=== PATIENT | male | born 1985 | race Caucasian/White ===

== ENCOUNTER 2020-08-27 10:12 | Emergency (ER) | payer OTHER ==
[2020-08-27 10:48] LABS: HEMOGLOBIN 16.8 gm/dl (14.0-17.5); RED BLOOD COUNT 5.35 M/UL (4.20-5.50); WHITE BLOOD COUNT 8.5 K/UL (4.5-11.0)
[2020-08-27 11:08] LABS: BUN/CREATININE RATIO 20 (0-10)
[2020-08-27] MEDS ORDERED: KEPPRA500 MG PO (12:28)
== END 2020-08-27 13:17 | disposition home or self-care (01) ==
LOC: ER1 10:12
PROVIDERS: Physician Assistant
DX: G40.909 Epilepsy, unspecified, not intractable, without status epilepticus (principal); F17.210 Nicotine dependence, cigarettes, uncomplicated
CPT/HCPCS: 70450; 71045; 80053; 85025; 99284; J1953

== ENCOUNTER 2021-07-07 01:49 | Emergency (ER) | payer OTHER ==
[~2021-07-07 01:49] MED LIST: IBUPROFEN600 MG PO; KEPPRA500 MG PO
== END 2021-07-07 03:51 | disposition home or self-care (01) ==
LOC: ER1 01:49
DX: S63.284A Dislocation of proximal interphalangeal joint of right ring finger, initial encounter (principal); S00.83XA Contusion of other part of head, initial encounter; Z23 Encounter for immunization; Y04.2XXA Assault by strike against or bumped into by another person, initial encounter
CPT/HCPCS: 26670; 70450; 73130; 90471; 90715; 99284